=== PATIENT | female | born 1985 | race Hispanic/Latino ===

== ENCOUNTER 2017-04-03 07:26 | Emergency (ER) | payer OTHER ==
[~2017-04-03] VITALS: Ht 160 cm; Wt 77.3 kg
[~2017-04-03 07:26] MED LIST: LORA5TAB8 PO; PREG50CA PO; TRAM50TA2 PO
[2017-04-03 07:49] VITALS: BP 109/72; PULSE 67; RESP 16; O2SAT 100
--- NOTE | 2017-04-03 07:49 | ED.REPORT ---
HPI-Extremity Problem Upper Date of Service Apr 03, 2017 ED Provider: Adrián Hawthorne Patient is a 32 year old female who presents to the ED complaining of an exacerbation of her chronic R hand pain onset 2 days ago. Associated symptoms include decreased ROM. She is concerned she may have re-injured the area while playing volley ball with her kids. Her original injury occurred 17 years ago when she accidentally cut down to the bone with a knife on her R 5th finger. She never received proper medical attention and has had chronic pain and decreased ROM at baseline. She denies weakness, numbness, tingling, or any other symptoms. Nursing Notes Stated Complaint: RIGHT HAND PAIN Chief Complaint: Extremity Trauma Nursing Notes Reviewed: Yes Allergies: Coded Allergies: lactose (Verified Allergy, Unknown, 04/03/17) No Active Prescriptions or Reported Meds General Time Seen by MD: 07:48 Chief Complaint Hand injury right Hx Obtained From: Patient Arrived By: Walk-in Onset Occurred: 2 days ago Symptom Duration: Since onset Similar Sx Previous: Yes Past Medical History Past Medical History Notes: fibromalgyia Past Medical History HX of migraine Endometriosis chronic pelvic pain PID Reports: GERD Past Surgical History Cholecystectomy. Ovarian cyst removed in the past. Tubal Ligation. December 05 2015 - Total laparoscopic hysterectomy with right salpingo-oophorectomy and left salpingectomy Reports: Hysterectomy Family History Noncontributory Smoking History Light Tobacco Smoker Social History Previous suicide attempt via OD Alcohol Use: "Social" Drug Use: THC Other Social History: Good social support, , Lives with children, Local resident Occupation no work or school 09/04/2016 Ambulatory Status Independent Review of Systems Review of Systems Note: +decreased ROM -tingling Musculoskeletal: Reports: Extremity pain Neurologic: Denies: Numbness, Weakness Complete sys rev & neg: except as marked. Physical Exam Initial Vital Signs Vital Signs (First) Date Time Temp Pulse Resp B/P Pulse Ox O2 Delivery O2 Flow Rate FiO2 04/03/17 07:49 36.5 67 16 109/72 100 Room Air Initial VS: Reviewed, Vital signs normal Head / Eyes: Atraumatic, Normocephalic Neck: Full range of motion Respiratory: No respiratory distress Cardiovascular: Intact distal pulses Skin: Warm, Dry Neurologic: Alert, Oriented, Nonfocal Psychiatric: Mood/affect normal, Behavior normal, Normal thought content General/Constitutional: Awake, Alert, No acute distress Upper Extremity / MS: No deformity, Neurologic intact, Vascular intact Wrist / Hand: No deformity Diffuse tenderness over base of 5th proximal finger Interpretation & Diagnostics X-Ray Interpretation Xray Interpretation: IMPRESSION: 1. No fracture or dislocation. Dictated by: Ernie Lima M.D. on 04/03/2017 at 9:27 Approved by: Ernie Lima M.D. on 04/03/2017 at 9:27 X-Ray Ordered: Hand right Interpretation / Wet Read by: Interpret - Radiologist Procedures Splint Application - Fx Mgt Time: 09:26 Procedure Performed by: Supervisor [employer] Precise Anatomic Location: Velcro wrist splint Definitive Fracture Care: Pain control Post-Procedure / Complications: Cap refill normal, Post splint vascular nl, Post splint neuro nl, Condition improved, Tolerated procedure well, Patient stable Splint Post-Application Eval Extremity Condition: Cap refill < 2 sec, Distal sensation intact, Distal motor Intact, No compartment syndrome Re-Eval/Medical Decision Med Decision/Clinical Course 32-year-old female complaining of right hand pain that has been present for majority of her life since a trauma worsening last couple days after playing volleyball. There is no evidence of fracture on x-ray. Neurovascular intact. Likely contusion acutely with chronic pain due to previous trauma as a child. Placed in wrist splint with plans to follow up with primary doctor. Return precautions given. Re-Evaluation/Progress : Time of Eval: 09:20 Re-Evaluation/Progress Note: Discussed imaging results. Discussed plan for discharge. Patient understands and agrees with plan. All questions addressed at this time. Counseled Regarding: Diagnosis, Lab results, Need for follow-up, When/why to return to ED Discharge & Departure Impression: Primary Impression: Hand pain, right Disposition: Home Discharge Condition All VS Reviewed: Yes Condition: Stable Patient Instructions: Splint Care (ED) Additional Instructions: Thank you for entrusting us with your care. Your X-Ray does not indicate an obvious fracture. You may wear a wrist splint for pain control. You may take Ibuprofen (up to 800 mg 3 times a day). Ice the injury for 20 minutes at a time, 3-4 times a day and avoid repetitive trauma. Follow up with your primary doctor if your pain does not resolve. Return to the emergency department for numbness, weakness, tingling, or any other new or worsening symptoms. Referrals: Ronald Wright MD (PCP) Scribe Attestation Portions of this note were transcribed by Tim Meng. I, Dr. Hawthorne personally performed the history, physical exam and medical decision-making; I reviewed and confirmed the accuracy of the information in the transcribed note. copies to: Ronald Wright MD, Ben M MD Apr 03, 2017 07:49 TIM MENG Apr 03, 2017 07:57
--- NOTE | 2017-04-03 09:29 | DRSVH ---
PROCEDURE: X-RAY RIGHT HAND, MINIMUM THREE VIEWS ([id number]) INDICATIONS: trauma TECHNIQUE: 3 views of the right hand acquired. COMPARISON: None. FINDINGS: Bones: No fractures or dislocations. Joint spaces appear preserved. Carpal bones are normally alig kena. No suspicious bony lesions. Soft tissues: No suspicious soft tissue calcifications. IMPRESSION: 1. No fracture or dislocation. Dictated by: Ernie Lima M.D. on 04/03/2017 at 9:27 Approved by: Ernie Lima M.D. on 04/03/2017 at 9:27
== END 2017-04-03 09:40 | disposition home or self-care (01) ==
LOC: SED 07:26
DX: M25.541 Pain in joints of right hand (principal); K21.9 Gastro-esophageal reflux disease without esophagitis; M79.7 Fibromyalgia; F17.200 Nicotine dependence, unspecified, uncomplicated; E73.0 Congenital lactase deficiency
CPT/HCPCS: 73130; 96372; 99284; J1885